=== PATIENT | male | born 1985 | race Caucasian/White ===

== ENCOUNTER 2016-12-24 13:50 | Emergency (ER) | payer SELFPAY ==
[~2016-12-24] VITALS: Ht 185.4 cm; Wt 100.0 kg
[2016-12-24 13:54] VITALS: BP 111/66; PULSE 95; RESP 18; TEMP 98.2; O2SAT 95
[2016-12-24] MEDS ORDERED: SODIUM CHLOR 0.9% 1000 ML INJ 1,000 ML IV SCH (14:04)
[2016-12-24 14:09] VITALS: BP 108/61; PULSE 76; RESP 18; O2SAT 97
[2016-12-24] MEDS ORDERED: FEXO15TA PO (14:11)
[2016-12-24] MEDS ORDERED: ALPR1TAB3 PO (14:11)
[2016-12-24] MEDS ORDERED: ONDANSETRON HCL 4 MG/2 ML VIAL IVP ONE (14:15)
[2016-12-24] MEDS ORDERED: SODIUM CHLORIDE 0.9% FLUSH 10 ML FLUSH IV FLUSH PRN (14:15)
[2016-12-24] MEDS ORDERED: HYDROmorphone HCL PF 1 MG/ML VIAL IVS ONE (14:15)
[2016-12-24 14:48] LABS: AUTOMATED NEUTROPHIL # 7.9 TH/MM3 (1.8-7.7); BASOPHIL # 0.1 TH/MM3 (0-0.2); BASOPHIL % 0.7 % (0.0-2.0); EOSINOPHIL # 0.3 TH/MM3 (0-0.4); EOSINOPHIL % 2.5 % (0.0-4.0); HEMATOCRIT 40.5 % (39.0-51.0); HEMO FLAGS DIFF FINAL; LYMPH % 27.9 % (9.0-44.0); LYMPHOCYTE # 3.5 TH/MM3 (1.0-4.8); MEAN CELL VOLUME 100.4 FL (80.0-100.0); MEAN CORPUSCULAR HEMOGLOBIN 34.5 PG (27.0-34.0); MEAN CORPUSCULAR HGB CONC 34.4 % (32.0-36.0); MONO % 6.3 % (0.0-8.0); NEUT % 62.6 % (16.0-70.0); PLATELET COUNT 293 TH/MM3 (150-450); RED BLOOD COUNT 4.04 MIL/MM3 (4.50-5.90); RED CELL DISTRIBUTION WIDTH 13.6 % (11.6-17.2); WHITE BLOOD COUNT 12.6 TH/MM3 (4.0-11.0)
--- NOTE | 2016-12-24 15:00 | PD ---
HPI Chief Complaint: Abdominal Pain Time Seen by Provider: 13:58 Travel History International Travel<30 days: No Contact w/Intl Traveler<30days: No Traveled to known affect area: No History of Present Illness HPI So 31-year-old man who presents to the emergency department complaining of abrupt onset of right lower quadrant abdominal pain started about an hour or 2 ago. He's never had seizures previous similar symptoms. Symptoms normally was at work. No trauma. No lifting. No or testicular pain. No changes urination. No changes of bowel problems. No fevers or chills. He otherwise has been fine recently. History Past Medical History Medical History: Denies Significant Hx Social History Alcohol Use: Yes (occassional) Tobacco Use: Yes Allergies-Medications (Allergen,Severity, Reaction): Coded Allergies: penicillin G (Verified Allergy, Intermediate, rash, 12/24/16) Reported Meds & Prescriptions Reported Meds & Active Scripts Active Reported Alprazolam 1 Mg Tab 1 Mg PO Q6H PRN Lisseth Allergy (Fexofenadine HCl) 180 Mg Tab 180 Mg PO DAILY Review of Systems Except as stated in HPI: all other systems reviewed are Neg Physical Exam Narrative GENERAL: Well-appearing 31-year-old man, no acute distress. SKIN: Focused skin assessment warm/dry. HEAD: Atraumatic. Normocephalic. CARDIOVASCULAR: Regular rate and rhythm. No murmur appreciated. RESPIRATORY: No accessory muscle use. Clear to auscultation. Breath sounds equal bilaterally. GASTROINTESTINAL: Abdomen flat and soft. Mild right sided tenderness to palpation. MUSCULOSKELETAL: No obvious deformities. No edema. NEUROLOGICAL: Awake and alert. No obvious cranial nerve deficits. Motor grossly within normal limits. Normal speech. PSYCHIATRIC: Appropriate mood and affect; insight and judgment normal. Data Data Last Documented VS Vital Signs Date Time Temp Pulse Resp B/P (MAP) Pulse Ox O2 Delivery O2 Flow Rate FiO2 12/24/16 15:38 18 12/24/16 14:09 76 108/61 (77) 97 Room Air 12/24/16 13:54 98.2 Orders Orders Complete Blood Count With Diff (12/24/16 14:04) Comprehensive Metabolic Panel (12/24/16 14:04) Lipase (12/24/16 14:04) Urinalysis - C+S If Indicated (12/24/16 14:04) Ct Abd/Pel W/O Iv Contrast (12/24/16 14:04) Iv Access Insert/Monitor (12/24/16 14:04) Ecg Monitoring (12/24/16 14:04) Oximetry (12/24/16 14:04) Ondansetron Inj (Zofran Inj) (12/24/16 14:15) Sodium Chlor 0.9% 1000 Ml Inj (Ns 1000 M (12/24/16 14:04) Sodium Chloride 0.9% Flush (Ns Flush) (12/24/16 14:15) Hydromorphone Pf Inj (Dilaudid Pf Inj) (12/24/16 14:15) Sodium Chlor 0.9% 1000 Ml Inj (Ns 1000 M (12/24/16 15:15) Ketorolac Inj (Toradol Inj) (12/24/16 16:45) Labs Laboratory Tests Test 12/24/16 14:10 White Blood Count 12.6 TH/MM3 Red Blood Count 4.04 MIL/MM3 Hemoglobin 13.9 GM/DL Hematocrit 40.5 % Mean Corpuscular Volume 100.4 FL Mean Corpuscular Hemoglobin 34.5 PG Mean Corpuscular Hemoglobin Concent 34.4 % Red Cell Distribution Width 13.6 % Platelet Count 293 TH/MM3 Mean Platelet Volume 7.9 FL Neutrophils (%) (Auto) 62.6 % Lymphocytes (%) (Auto) 27.9 % Monocytes (%) (Auto) 6.3 % Eosinophils (%) (Auto) 2.5 % Basophils (%) (Auto) 0.7 % Neutrophils # (Auto) 7.9 TH/MM3 Lymphocytes # (Auto) 3.5 TH/MM3 Monocytes # (Auto) 0.8 TH/MM3 Eosinophils # (Auto) 0.3 TH/MM3 Basophils # (Auto) 0.1 TH/MM3 CBC Comment DIFF FINAL Differential Comment Blood Urea Nitrogen 11 MG/DL Creatinine 1.22 MG/DL Random Glucose 77 MG/DL Total Protein 6.6 GM/DL Albumin 3.6 GM/DL Calcium Level 9.0 MG/DL Alkaline Phosphatase 58 U/L Aspartate Amino Transf (AST/SGOT) 28 U/L Alanine Aminotransferase (ALT/SGPT) 42 U/L Total Bilirubin 0.5 MG/DL Sodium Level 144 MEQ/L Potassium Level 4.2 MEQ/L Chloride Level 107 MEQ/L Carbon Dioxide Level 32.2 MEQ/L Anion Gap 5 MEQ/L Estimat Glomerular Filtration Rate 69 ML/MIN Lipase 111 U/L [facility] Medical Decision Making Medical Screen Exam Complete: Yes Emergency Medical Condition: Yes Interpretation(s) LABS unremarkable CT negative Differential Diagnosis Renal lithiasis, appendicitis, colitis, enteritis, hernia, torsion, other Narrative Course Medical decision making INITIAL cause a 31 minute presents emergent from an abrupt onset of right lower quadrant pain. I think this is likely a stone at the UVJ. Looks extremely uncomfortable. He has mild tenderness. We'll check labs, UA, CT, reassess. FINAL: 31-year-old man, back pain, any right lower quadrant abdominal pain since flank pain, etiology unclear. Possibly muscular skeletal. This likely early zoster. Recommend NSAIDs, short course of Lortab. Diagnosis Primary Impression: Flank pain Additional Instructions: Follow-up with your primary doctor in the next 2-4 days. Return to the emergency department for any new or worsening symptoms. Take Naprosyn as prescribed. Take Lortab as needed for severe pain. Use caution as this can cause drowsiness. Do not take this medication while driving. Med/Other Pt SpecificInfo: Prescription(s) given Scripts Hydrocodone-Acetaminophen (Lortab) 5-325 Mg Tab 1-2 TAB PO Q6H Y for PAIN, #12 TAB 0 Refills Prov: Jose Antonio Hagan MD 12/24/16 Naproxen (Naprosyn) 500 Mg Tab 500 MG PO BID for 10 Days, #60 TAB 0 Refills Prov: Jose Antonio Hagan MD 12/24/16 Disposition: 01 DISCHARGE HOME Condition: Stable Jose Antonio Hagan MD Dec 24, 2016 15:00
[2016-12-24 15:13] LABS: ALT (GPT) 42 U/L (12-78); ANION GAP 5 MEQ/L (5-15); AST (GOT) 28 U/L (15-37); BICARBONATE 32.2 MEQ/L (21.0-32.0); BLOOD UREA NITROGEN 11 MG/DL (7-18); CHLORIDE 107 MEQ/L (98-107); GLOMERULAR FILTRATION RATE 69 ML/MIN (>89); POTASSIUM 4.2 MEQ/L (3.5-5.1); SODIUM (NA) 144 MEQ/L (136-145)
[2016-12-24 15:15] LABS: ALKALINE PHOSPHATASE 58 U/L (45-117); TOTAL BILIRUBIN ADULT 0.5 MG/DL (0.2-1.0)
[2016-12-24] MEDS ORDERED: SODIUM CHLOR 0.9% 1000 ML INJ 1,000 ML IV ONE (15:15)
[2016-12-24 15:38] VITALS: RESP 18
--- NOTE | 2016-12-24 16:19 | RADRPT ---
EXAM DATE/TIME: 12/24/2016 15:47 [facility] COMPARISON: No previous studies available for comparison. INDICATIONS : Right lower quadrant pain. ORAL CONTRAST: No oral contrast ingested. RADIATION DOSE: 8.53 CTDIvol (mGy) MEDICAL HISTORY : None SURGICAL HISTORY : None. ENCOUNTER: Initial ACUITY: 1 day PAIN SCALE: 7/10 LOCATION: Right lower quadrant TECHNIQUE: Volumetric scanning of the abdomen and pelvis was performed. Using automated exposure control and ad justment of the mA and/or kV according to patient size, radiation dose was kept as low as reasonably achievable to obtain optimal diagnostic quality images. DICOM format image data is available electro nically for review and comparison. FINDINGS: The lung base is are clear. The liver, spleen and pancreas are unremarkable. Gallbladder is contracted. Minimal nodularity is seen about the left adrenal with a 1.5 cm mass low density identified. Most li yvonne adenoma. The kidneys are unremarkable. The region of the cecum and terminal appear normal no normal appearing appendix. There are no inflammatory changes identified in the pelvis. The bladder, prostate and simple vesicles unremarkable There is no ascites. There is no intraperitoneal adenopathy. CONCLUSION: I see no evidence renal calculi. Small left adrenal nodule. Feng Dick MD FACR on December 24, 2016 at 15:55 Board Certified Radiologist. This report was verified electronically.
[2016-12-24] MEDS ORDERED: KETOROLAC TROMETHAMINE 30 MG/ML (IVP) VIAL IVP ONE (16:45)
[2016-12-24] MEDS ORDERED: NAPR500 PO (16:52)
[2016-12-24] MEDS ORDERED: HYDR-3533 PO (16:52)
[2016-12-24 17:04] VITALS: BP 117/62
== END 2016-12-24 17:05 | disposition home or self-care (01) ==
LOC: NEPC 13:50
DX: R10.31 Right lower quadrant pain (principal); Z72.0 Tobacco use
CPT/HCPCS: 74176; 80053; 83690; 85025; 96361; 96374; 96375; 99285; J1170; J1885; J2405; J7030

== ENCOUNTER 2016-12-26 12:45 | Emergency (ER) | payer SELFPAY ==
[~2016-12-26] VITALS: Ht 185.4 cm; Wt 100.0 kg
[~2016-12-26 12:45] MED LIST: ALPR1TAB3 PO; FEXO15TA PO; HYDR-3533 PO; NAPR500 PO
[2016-12-26 12:47] VITALS: BP 117/77; PULSE 70; RESP 24; TEMP 98.3; O2SAT 96
[2016-12-26 12:59] VITALS: BP 115/73; PULSE 75; RESP 18; TEMP 98.1; O2SAT 95
[2016-12-26] MEDS ORDERED: MELO-1 PO (13:11)
--- NOTE | 2016-12-26 13:18 | PD ---
HPI . Persistent right flank pain Chief Complaint: Flank/Kidney Pain Time Seen by Provider: 12:58 Travel History International Travel<30 days: No Contact w/Intl Traveler<30days: No Traveled to known affect area: No History of Present Illness HPI This patient presents with a chief complaint of persistent right flank pain. The patient was seen here 2 days ago for same and had a thorough evaluation done including a CT. His workup was completely negative. He was discharged with prescriptions for Naprosyn and Lortab. He states that his pain was controlled with Lortab but that he has now run out. Any modifying factors. He states that the pain as a knifelike pain in his right flank. He rates the pain 10/10. He denies any associated symptoms such as urinary tract symptoms, GI symptoms, respiratory symptoms, fever. PFSH Past Medical History Asthma: Yes Anxiety: Yes Musculoskeletal: Yes (L4-L5 disc pain) Influenza Vaccination: Yes Past Surgical History Surgical History: No Previous Surgery Social History Alcohol Use: Yes (occassional) Tobacco Use: Yes Substance Use: No Allergies-Medications (Allergen,Severity, Reaction): Coded Allergies: penicillin G (Verified Allergy, Intermediate, rash, 12/26/16) Reported Meds & Prescriptions Reported Meds & Active Scripts Active Meloxicam 15 Mg Tab 15 Mg PO DAILY Reported Alprazolam 1 Mg Tab 1 Mg PO Q6H PRN Lisseth Allergy (Fexofenadine HCl) 180 Mg Tab 180 Mg PO DAILY Review of Systems Except as stated in HPI: all other systems reviewed are Neg General / Constitutional: No: Fever, Chills Cardiovascular: No: Chest Pain or Discomfort Respiratory: No: Shortness of Breath Gastrointestinal: No: Nausea, Vomiting, Diarrhea Genitourinary: Positive: Flank Pain, No: Urgency, Frequency, Dysuria Physical Exam Narrative GENERAL: Patient walks and ambulatory in no distress. He looks relaxed. He does not have a grimace on his face. SKIN: He has not developed a zoster rash in the right flank area. HEAD: Normocephalic/atraumatic. EYES: Pupils are equal. Extraocular movements are intact. NECK: Neck had full range of motion with no apparent pain. CARDIOVASCULAR: Regular rate and rhythm. RESPIRATORY: Nonlabored respirations. GI: Abdomen is soft and nontender throughout. Bowel sounds are present. There is no distention. MUSCULOSKELETAL: No obvious trauma to his extremities. NEUROLOGICAL: No focal neurological findings. PSYCHIATRIC: Appropriate mood and affect. Data Data Last Documented VS Vital Signs Date Time Temp Pulse Resp B/P (MAP) Pulse Ox O2 Delivery O2 Flow Rate FiO2 12/26/16 12:59 98.1 75 18 115/73 (87) 95 Room Air MDM Medical Decision Making Medical Screen Exam Complete: Yes Emergency Medical Condition: Yes Medical Record Reviewed: Yes (patient was seen here on 12/24 for same. He had a CBC with a normal WBC count. His electrolytes were all normal. His LFTs were normal. Lipase was normal. CT was negative. The initial presumptive diagnosis was kidney colic. However, was negative. The discharge diagnosis was nonspecific flank pain, possible early shingles. He was discharged with prescriptions for Lortab and Naprosyn.) Differential Diagnosis Differential diagnosis of flank pain includes but is not limited to kidney stone , pyelonephritis, musculoskeletal pain, PE Narrative Course This patient presents complaining with persistent right flank pain. He has had a negative previous workup 2 days ago. He has a benign exam. He looks very comfortable although he is complaining with 10/10 pain. I have written a prescription for Motrin to use in lieu of of the Naprosyn. He has completed the Lortab. Diagnosis Primary Impression: Right flank pain Patient Instructions: General Instructions Departure Forms: Tests/Procedures Scripts Meloxicam (Meloxicam) 15 Mg Tab 15 MG PO DAILY for Arthritis Pain, #10 TAB 0 Refills Prov: Steffany Castelan MD 12/26/16 Disposition: 01 DISCHARGE HOME Condition: Stable Steffany Castelan MD Dec 26, 2016 13:18
[2016-12-26 13:27] VITALS: BP 115/73
== END 2016-12-26 13:28 | disposition home or self-care (01) ==
LOC: NEPD 12:45
DX: R10.9 Unspecified abdominal pain (principal); Z72.0 Tobacco use
CPT/HCPCS: 99283